=== PATIENT | female | born 1980 | race Caucasian/White ===

== ENCOUNTER 2023-03-15 11:47 | Outpatient (CLI) | payer BC, SELFPAY | END 2023-03-15 11:48 | disposition home or self-care (01) | PROVIDERS: PCP Family Medicine; Visit Provider Family Medicine | DX: Z00.00 Encounter for general adult medical examination without abnormal findings (principal); I10 Essential (primary) hypertension; Z13.6 Encounter for screening for cardiovascular disorders | CPT/HCPCS: 80048; 80061; 85025 ==

== ENCOUNTER 2023-06-01 13:25 | Outpatient (CLI) | payer BC, SELFPAY ==
--- NOTE | 2023-06-01 13:40 | MM_ITS ---
Patient: ERIN VALDIVIA Facility:?[facility] Patient ID:?[id number] Site Patient ID:?[id number]. Site :?[id number] Study:?XRay-Breast Bilateral 3D-06/01/2023 1:45:08 PM Ordering Physician:Nora Final Report: BILATERAL SCREENING MAMMOGRAM WITH COMPUTER-AIDED DETECTION AND TOMOSYNTHESIS TECHNIQUE: CC and MLO views were obtained. These mammographic images have been obtained using full-field digital technique. These mammographic images were interpreted with the benefit of computer-aided detection. Breast Tomosynthesis was used in this interpretation. COMPARISON FILM: 03/10/2020. FINDINGS: The breasts are heterogeneously dense, which may obscure small masses. IMPRESSION: There is no radiographic evidence for malignancy. ASSESSMENT: BI-RADS Category 2: Benign RECOMMENDATION: Routine screening mammogram in 1 year. A lay language report of this examination will be provided to the patient. Mal Russo M.D. Diagnostic Radiologist [email or web address] DSM/sp R& Transcribed: 12:17 p.m. SP/Dictated by: Mal Russo MD @ 06/15/2023 11:07:00 AM Signed by:?Mal Russo MD @06/15/2023 12:25:12 PM (Electronic Signature)
== END 2023-06-01 13:26 | disposition home or self-care (01) ==
LOC: MAMMO 13:26
PROVIDERS: PCP Family Medicine; Visit Provider Family Medicine
DX: Z12.31 Encounter for screening mammogram for malignant neoplasm of breast (principal); R92.2 Inconclusive mammogram
CPT/HCPCS: 77063; 77067

== ENCOUNTER 2024-03-24 08:36 | Outpatient (CLI) | payer BC, SELFPAY | END 2024-03-24 08:37 | disposition home or self-care (01) | PROVIDERS: PCP Family Medicine; Visit Provider Family Medicine | DX: I10 Essential (primary) hypertension (principal); R53.83 Other fatigue; Z13.29 Encounter for screening for other suspected endocrine disorder | CPT/HCPCS: 80048; 84443; 85025 ==

== ENCOUNTER 2025-02-23 16:55 | Outpatient (CLI) | payer BC, SELFPAY ==
[2025-02-23 22:15] LABS: Strep A DNA Probe* NOT DETECTED (Not Detectd)
== END 2025-02-23 16:56 | disposition home or self-care (01) ==
LOC: FBOREF 16:55
PROVIDERS: PCP Family Medicine; Visit Provider Family Medicine
DX: J02.9 Acute pharyngitis, unspecified (principal)
CPT/HCPCS: 87651